=== PATIENT | male | born 1980 | race American Indian/Alaskan Native ===

== ENCOUNTER 2020-08-26 21:24 | Emergency (ER) | payer SELFPAY ==
[2020-08-26 23:03] VITALS: BP 174/96
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
[2020-08-27] MEDS ORDERED: IBUPROFEN 600 MG TAB PO ONE (03:10)
[2020-08-27] MEDS ORDERED: ACETAMINOPHEN 500 MG TAB PO ONE (03:10)
[2020-08-27] MEDS ORDERED: CYCLOBENZAPRINE 10 MG TAB PO ONE (03:10)
== END 2020-08-27 03:50 | disposition home or self-care (01) ==
LOC: ED 21:24
DX: S16.1XXA Strain of muscle, fascia and tendon at neck level, initial encounter (principal); S46.912A Strain of unspecified muscle, fascia and tendon at shoulder and upper arm level, left arm, initial encounter; Z79.899 Other long term (current) drug therapy; V49.49XA Driver injured in collision with other motor vehicles in traffic accident, initial encounter; Y92.410 Unspecified street and highway as the place of occurrence of the external cause; Y93.89 Activity, other specified; Y99.8 Other external cause status
CPT/HCPCS: 99282